=== PATIENT | female | born 1965 | race Two or more races ===

== ENCOUNTER 2018-06-09 20:14 | Emergency (ER) | payer MEDICAID ==
[~2018-06-09] VITALS: Ht 160 cm; Wt 65.8 kg
[2018-06-09] MEDS ORDERED: LOSARTAN POTASS25 MG ORAL (20:15)
[2018-06-09] MEDS ORDERED: OMEPRAZOLE10 M1 ORAL (20:16)
[2018-06-09 20:30] VITALS: BP 134/71
[2018-06-09] MEDS ORDERED: Morphine Sulfate 4mg/ml Inj (IV USE ONLY) IVP ONE ×2 (20:30→21:00)
--- NOTE | 2018-06-09 20:45 | NUR ---
ED Nurse Note: PT walked into the ER with with a cheif complaint of Vomiting since 1500 hrs today. Upon first assesment, pt vomit is clear. pt Neuro assessment is alert and oriented times 4 and is able to walked with steady gait. pt pupiles are round and reactive to light and accomidating. pt caridac assment is within normal limits with S1 and S2 noted. cap refill is less than 3 on all extremities with pulse and sensation noted on all extremiteis. pt respritory assesment is within normal limits with clear lung sounds on all bases of lobes. no wheezing or airway obstruction noted. pt abdominal sounds are ascultated and noted on all 4 quadrants. will continue to monitor pt.
[2018-06-09 20:52] LABS: BASOPHILS % (AUTO) 1.5 % (0.0-2.0); EOSINOPHILS % (AUTO) 1.4 % (0.0-3.0); HEMATOCRIT 41.4 % (37.0-47.0); HEMOGLOBIN 14.7 G/DL (12.0-16.0); LYMPHOCYTES % (AUTO) 36.4 % (20.0-45.0); MEAN CORPUSCULAR VOLUME 91 FL (80-99); MONOCYTES % (AUTO) 5.8 % (1.0-10.0); NEUTROPHILS % (AUTO) 54.9 % (45.0-75.0); PLATELET COUNT 192 K/UL (150-450); RED BLOOD COUNT 4.53 M/UL (4.20-5.40); RED CELL DISTRIBUTION WIDTH 11.3 % (11.6-14.8); WHITE BLOOD COUNT 9.2 K/UL (4.8-10.8)
[2018-06-09] MEDS ORDERED: Ketorolac 30mg Inj IV ONE (21:00)
--- NOTE | 2018-06-09 21:01 | Emergency Room Report ---
History of Present Illness General Chief Complaint: Headache Source: Patient, Family Member, EMS Present Illness HPI Is a 52-year-old female with a history of cataracts status post attempted Caddick surgery a couple of days ago. She presents with chief complaint of left eye pain and headache. Onset today. Her , JENNIFER Simon. attempted cataract surgery but was unsuccessful. He said at the cataracts slipped down further and patient is scheduled for another surgery on Tuesday. Pain is been there for all day. Throbbing in nature. Worse with light. Worse with noises. Pain is sharp and throbbing nature. 10 out of 10. Naprosyn that was prescribed is not helping. Denies any other complaint. Mellen nauseous. No fever or focal deficit. Allergies: Coded Allergies: No Known Allergies (Unverified , 06/09/18) Patient History Past Medical History: see triage record, old chart reviewed Past Surgical History: other Pertinent Family History: none Social History: Denies: smoking Last Menstrual Period: 5 years ago Now: No Immunizations: other Reviewed Nursing Documentation: PMH: Agreed; PSxH: Agreed Nursing Documentation-PMH Hx Hypertension: Yes Review of Systems Eye: Reports: eye pain; Denies: blurred vision ENT: Denies: ear pain, nose congestion, throat swelling Respiratory: Denies: cough, shortness of breath Cardiovascular: Denies: chest pain, palpitations Gastrointestinal: Denies: abdominal pain, diarrhea, nausea, vomiting Musculoskeletal: Denies: back pain, joint pain Skin: Denies: rash Neurological: Denies: headache, numbness Endocrine: Denies: increased thirst, increased urine Hematologic/Lymphatic: Denies: easy bruising All Other Systems: negative except mentioned in HPI Physical Exam Vital Signs Date Time Temp Pulse Resp B/P (MAP) Pulse Ox O2 Delivery O2 Flow Rate FiO2 06/09/18 20:10 98.1 80 16 152/76 98 Room Air vitals with high blood pressure Sp02 EP Interpretation: reviewed, normal General Appearance: well appearing, no apparent distress, alert Head: normocephalic, atraumatic Eyes: left eye other - Left thigh with large cataract. Pupil with shape of cataract surgery.; bilateral eye EOMI ENT: hearing grossly normal, normal pharynx Neck: full range of motion, supple, no meningismus Respiratory: chest non-tender, lungs clear, normal breath sounds Cardiovascular #1: regular rate, rhythm, no murmur Gastrointestinal: normal bowel sounds, non tender, no mass, no organomegaly, no bruit, non-distended Musculoskeletal: back normal, gait/station normal, normal range of motion Psychiatric: mood/affect normal Skin: warm/dry Medical Decision Making Diagnostic Impression: Primary Impression: Headache Qualified Codes: R51 - Headache ER Course Patient with eye pain and headache secondary to her cataract surgery. It was not a full surgery and she need to be rescheduled on Tuesday. Pain is better controlled. I see no evidence of infection, globe rupture or intracranial injury. We'll discharge home. Last Vital Signs Date Time Temp Pulse Resp B/P (MAP) Pulse Ox O2 Delivery O2 Flow Rate FiO2 06/09/18 20:30 98.1 71 16 134/71 98 Room Air Status: improved Disposition: HOME, SELF-CARE Condition: Stable Scripts Hydrocodone Bit/Acetaminophen 5-325* (NORCO 5-325*) 1 Each Tablet 1 TAB ORAL Q6H PRN for For Pain, #20 TAB 0 Refills Prov: Salvador Beltrán MD 06/09/18 Patient Instructions: General Headache Without Cause Additional Instructions: Follow-up your eye doctor to finish Surgery. Return for increasing pain. Salvador Beltrán MD Jun 09, 2018 21:01
--- NOTE | 2018-06-09 21:14 | Diagnostic Imaging Report ---
EXAM: XR Chest, 1 View CLINICAL HISTORY: COUGH TECHNIQUE: Frontal view of the chest. COMPARISON: No relevant prior studies available. FINDINGS: Lungs: Small amount of airspace opacity over the medial right lung base, likely lower lobe. Pleural space: Unremarkable. No pneumothorax. Heart: Unremarkable. No cardiomegaly. Mediastinum: Unremarkable. Bones/joints: Unremarkable. IMPRESSION: Small amount of airspace opacity over medial right lung base, likely lower lobe suggest atelectasis and/or pneumonia.
[2018-06-09 21:19] LABS: ANION GAP 11 mmol/L (5-15); BLOOD UREA NITROGEN 22 mg/dL (7-18); CALCIUM 10.4 MG/DL (8.5-10.1); CARBON DIOXIDE 23 MMOL/L (21-32); CHLORIDE 102 MMOL/L (98-107); CREATININE 0.9 MG/DL (0.55-1.30); POTASSIUM 3.7 MMOL/L (3.5-5.1); SODIUM 136 MMOL/L (136-145)
--- NOTE | 2018-06-09 21:21 | Diagnostic Imaging Report ---
EXAM: CT Head Without Intravenous Contrast CLINICAL HISTORY: PAIN TECHNIQUE: Axial computed tomography images of the head/brain without intravenous contrast. CTDI is 70.53 mGy and DLP is 1344 mGy-cm. One or more of the following dose reduction techniques were used: automated exposure control, adjustment of the mA and/or kV according to patient size, use of iterative reconstruction technique. Coronal and sagittal reconstructions are performed COMPARISON: No relevant prior studies available. FINDINGS: Brain: Unremarkable. No hemorrhage. No significant white matter disease. No edema. Ventricles: Unremarkable. No ventriculomegaly. Bones/joints: Unremarkable. No acute fracture. Soft tissues: Unremarkable. Sinuses: Minimal sinus disease Mastoid air cells: Unremarkable as visualized. No mastoid effusion. Orbits: Left cataract surgery. IMPRESSION: No acute findings.
[2018-06-09 21:32] LABS: ALANINE AMINOTRANSFERASE 71 U/L (12-78); ALBUMIN 4.3 G/DL (3.4-5.0); ALBUMIN/GLOBULIN RATIO 1.2 (1.0-2.7); ALKALINE PHOSPHATASE 107 U/L (46-116); ASPARTATE AMINO TRANSFERASE 32 U/L (15-37); BILIRUBIN,TOTAL 0.5 MG/DL (0.2-1.0); CKMB 0.6 NG/ML (0.0-3.6); CREATINE KINASE 60 U/L (26-308)
[2018-06-09] MEDS ORDERED: HYDROmorphone 1mg/ml Carpuject IVP ONE (22:00)
[2018-06-09 22:16] VITALS: BP 142/78
[2018-06-09] MEDS ORDERED: NORCO 5-325 TA1 EACH ORAL (22:17)
[2018-06-09] MEDS ORDERED: Metoclopramide 10mg/2ml Inj IVP ONE (22:30)
[2018-06-09 22:39] VITALS: BP 142/78
--- NOTE | 2018-06-09 22:40 | NUR ---
ER DISCHARGE NOTE: Patient is cleared to be discharged per ERMD, pt is aox4, on room air, with stable vital signs. pt was given dc and prescription instructions, pt was able to verbalize understanding, pt id band and iv site removed without complications. pt is able to ambulate with steady gait. pt took all belongings.
== END 2018-06-09 22:30 | disposition home or self-care (01) ==
LOC: EDBD 20:14 → EMR 22:10
DX: R51 Headache (principal); Z98.890 Other specified postprocedural states; I10 Essential (primary) hypertension
CPT/HCPCS: 36415; 70450; 71045; 80053; 82550; 82553; 83690; 84484; 85025; 93005; 96374; 96375; 96376; 99284; J1170; J1885; J2270; J2405; J2765